=== PATIENT | female | born 1945 | race Caucasian/White ===

== ENCOUNTER 2019-01-19 04:14 | Inpatient (IN) | payer MEDICARE ==
[2019-01-18 12:43] LABS: BASOPHILS # (AUTO) 0.06 x10^3/uL (0-0.1); BASOPHILS % (AUTO) 1 % (0-1); EOSINOPHILS # (AUTO) 0.12 x10^3/uL (0-0.4); EOSINOPHILS % (AUTO) 2 % (1-7); LYMPHOCYTES # (AUTO) 1.88 x10^3/uL (1-3.4); LYMPHOCYTES % (AUTO) 23 % (22-44); MD NO; MEAN CORPUSCULAR HEMOGLOBIN 29.7 pg (27.0-34.8); MEAN CORPUSCULAR HGB CONC 32.4 g/dL (32.4-35.8); MEAN CORPUSCULAR VOLUME 91.9 fL (80-100); MEAN PLATELET VOLUME 7.6 fL (7.4-10.4); MONOCYTES # (AUTO) 0.63 x10^3/uL (0.2-0.8); MONOCYTES % (AUTO) 8 % (2-9); NEUTROPHILS # (AUTO) 5.64 x10^3/uL (1.8-6.8); NEUTROPHILS % (AUTO) 68 % (42-75); PLATELET COUNT 354 x10^3/uL (130-400); RED BLOOD COUNT 4.89 x10^6/uL (3.82-5.3); RED CELL DISTRIBUTION WIDTH 15.3 % (9.6-15.2)
[2019-01-18 12:45] LABS: MICROSCOPIC NOT IND
[2019-01-18 12:53] LABS: INTERNATIONAL NORMALIZED RATIO 0.96 (0.93-1.1); PROTHROMBIN TIME 10.1 Seconds (9.6-11.5)
[2019-01-18 12:54] LABS: ALANINE AMINOTRANSFERASE 17 U/L (12-78); ALBUMIN 3.8 g/dL (3.4-5.0); ANION GAP 5 mmol/L (5-15); CALCIUM 8.4 mg/dL (8.5-10.1); CHLORIDE 103 mmol/L (98-107); CREATININE 0.77 mg/dL (0.55-1.02)
[2019-01-18 12:56] LABS: ALKALINE PHOSPHATASE 56 U/L (45-117); BILIRUBIN,TOTAL 0.3 mg/dL (0.2-1.0); TOTAL PROTEIN 8.4 g/dL (6.4-8.2)
[2019-01-18 13:06] LABS: HEMOGLOBIN A1C 5.8 % (4.2-6.3)
[~2019-01-19] VITALS: Ht 170.2 cm; Wt 63.5 kg
[2019-01-19] VITALS (11 sets, daily range): BP systolic 79–150; BP diastolic 34–82
[~2019-01-19 04:14] MED LIST: ADDERALL PO; AMLO-150 PO; AMPH30TA2 PO; DEXT25CP PO; ESTR0.3T PO; ESTR1TAB15 PO; FISH1CAP PO; HYDR-3245 PO; LEVO175T2 PO; MULT1TAB60 PO
[2019-01-19] MEDS ORDERED: INSULIN LISPRO 100 UNITS/ML, PEN SQ-INSULIN SCH (05:00)
[2019-01-19] MEDS ORDERED: ACETAMINOPHEN 325 MG TABLET PO PRN ×2 (05:00→08:00)
[2019-01-19] MEDS ORDERED: DO NOT GIVE MC SCH (05:00)
[2019-01-19] MEDS ORDERED: CHLORHEXIDINE 15 ML UDC MM SCH (05:00)
[2019-01-19] MEDS: MUPIROCIN OINT 2%, 22GM TP SCH ×2 (05:23→05:24)
[2019-01-19] MEDS ORDERED: MIDAZOLAM 10MG/2 ML ONE ×2 (06:58→19:54)
[2019-01-19] MEDS ORDERED: FENTANYL PF 250 MCG/5ML ONE ×7 (06:58→22:24)
[2019-01-19] MEDS ORDERED: PHENYLEPHRINE 10 MG in SODIUM CHLORIDE 0.9% 249 ML IV PRN ×2 (07:30→07:45)
[2019-01-19] MEDS ORDERED: MANNITOL PMX 20% 500 ML IVPB PRN (07:30)
[2019-01-19] MEDS ORDERED: EPINEPHRINE 2 MG in SODIUM CHLORIDE 0.9% 248 ML IV SCH (07:30)
[2019-01-19] MEDS ORDERED: POTASSIUM CHLORIDE 80 MEQ, SODIUM BICARBONATE 8.4% 10 MEQ, MAGNESIUM SULFATE 0.5 GM, LI... IV PRN (07:30)
[2019-01-19] MEDS ORDERED: ALBUMIN HUMAN 5% 500 ML IV PRN (07:30)
[2019-01-19] MEDS ORDERED: REGULAR INSULIN 62.5 UNITS in SODIUM CHLORIDE 0.9% 249.375 ML IV PRN ×2 (07:30→07:45)
[2019-01-19] MEDS ORDERED: DEXMEDETOMIDINE 200 MCG in SODIUM CHLORIDE 0.9% 48 ML IV SCH (07:30)
[2019-01-19] MEDS ORDERED: VASOPRESSIN 50 UNIT in SODIUM CHLORIDE 0.9% 247.5 ML IV PRN (07:45)
[2019-01-19] MEDS ORDERED: SODIUM CHLORIDE 0.9% 1,000 ML IV PRN (07:45)
[2019-01-19] MEDS ORDERED: DOBUTAMINE 250 MG in SODIUM CHLORIDE 0.9% 230 ML IV PRN (07:45)
[2019-01-19] MEDS ORDERED: NITROGLYCERIN/D5W PMX 250 ML IV PRN (07:45)
[2019-01-19] MEDS ORDERED: GLUCAGON 1 MG IM PRN (08:00)
[2019-01-19] MEDS ORDERED: BISACODYL 5 MG EC TABLET PO PRN (08:00)
[2019-01-19] MEDS ORDERED: INSULIN REGULAR 100 UNITS/ML, 3ML VIAL IVPush PRN (08:00)
[2019-01-19] MEDS ORDERED: SODIUM BICARB 8.4%, 50ML SYRINGE IV PRN (08:00)
[2019-01-19] MEDS ORDERED: ACETAMINOPHEN 650 MG SUPP PR PRN (08:00)
[2019-01-19] MEDS ORDERED: DEXTROSE 50%, 50ML SYRINGE IVPush PRN (08:00)
[2019-01-19] MEDS ORDERED: HYDROmorphone 1 MG/ML, 1ML INJ IVPush PRN (08:00)
[2019-01-19] MEDS ORDERED: EPINEPHRINE 2 MG in SODIUM CHLORIDE 0.9% 248 ML IV PRN (08:00)
[2019-01-19] MEDS ORDERED: BISACODYL 10 MG SUPP PR PRN (08:00)
[2019-01-19] MEDS ORDERED: DEXTROSE 4 GM TAB.CHEW PO PRN (08:00)
[2019-01-19] MEDS ORDERED: ONDANSETRON 2MG/ML, 2ML IVPush PRN (08:00)
[2019-01-19] MEDS ORDERED: PROCHLORPERAZINE 5 MG/ML, 2ML IVPush PRN (08:00)
[2019-01-19] MEDS ORDERED: AMINOCAPROIC ACID 250 MG/ML, 20ML ONE ×2 (08:16)
[2019-01-19] MEDS ORDERED: PROTAMINE SULFATE 10 MG/ML, 25ML ONE (08:16)
[2019-01-19] MEDS ORDERED: PROPOFOL 10 MG/ML, 20ML ONE (08:16)
[2019-01-19] MEDS ORDERED: ROCURONIUM 10MG/ML,5ML ONE ×2 (08:16)
[2019-01-19] MEDS: MUPIROCIN OINT 2%, 22GM NAS SCH ×2 (09:00→21:00)
[2019-01-19] MEDS: DOCUSATE 100 MG CAPSULE PO SCH ×2 (09:00→23:55)
[2019-01-19] MEDS: SODIUM CHLORIDE FLUSH 10ML SYR IVF SCH ×4 (09:00→23:50)
[2019-01-19] MEDS ORDERED: AMIODARONE 50 MG/ML, 3ML ONE ×2 (09:57→10:04)
[2019-01-19] MEDS: INSULIN LISPRO 100 UNITS/ML, PEN SQ-INSULIN SCH ×3 (10:50→21:00)
[2019-01-19] MEDS ORDERED: SODIUM BICARBONATE 1 MEQ/ML, 50ML VIAL ONE (11:16)
[2019-01-19] MEDS ORDERED: methylPREDNISolone SOD SUCC 125 MG/2 ML ONE (11:16)
[2019-01-19] MEDS ORDERED: HEPARIN 1,000 UNITS/ML, 30ML ONE (11:16)
[2019-01-19] MEDS ORDERED: ALBUMIN HUMAN 25% 50 ML ONE (11:16)
[2019-01-19] MEDS ORDERED: LIDOCAINE-MPF 2% ,5ML ONE (11:16)
[2019-01-19 11:27] LABS: GLUCOSE BY BLOOD GAS ANALYZER 125 mg/dL (70-110); HEMOGLOBIN BY BLOOD GAS ANALYZ 9.8 g/dL (14.0-18.0); POTASSIUM BY BLOOD GAS ANALYZR 3.4 mmol/L (3.6-5.5)
[2019-01-19] MEDS: KSCALE TO 4.5 IV SCH ×2 (11:30→17:30)
[2019-01-19 11:40] LABS: INTERNATIONAL NORMALIZED RATIO 1.2 (0.93-1.1); PROTHROMBIN TIME 12.5 Seconds (9.6-11.5)
[2019-01-19] MEDS: MAGNESIUM SULFATE 1 GM in SODIUM CHLORIDE 0.9% 50 ML IVPB SCH (11:41)
[2019-01-19] MEDS: LACTATED RINGERS 1,000 ML IV PRN ×2 (11:44→12:51)
[2019-01-19] MEDS ORDERED: POTASSIUM CHLORIDE 30 MEQ in SODIUM CHLORIDE 0.9% 100 ML IV ONE (12:30)
[2019-01-19] MEDS ORDERED: SODIUM CHLORIDE 0.9%, 500ML IVBOLUS ONE (14:00)
[2019-01-19] MEDS ORDERED: ALBUMIN HUMAN 5% 500 ML IV ONE (14:00)
[2019-01-19] MEDS: HYDROcodone/APAP 5/325 TABLET PO PRN ×2 (17:03→18:18)
[2019-01-19] MEDS ORDERED: CALCIUM CHLORIDE 13.6 MEQ in SODIUM CHLORIDE 0.9% 100 ML IV ONE (18:30)
[2019-01-19] MEDS: morphine SULFATE 10 MG/ML, 1ML IVPush PRN ×2 (19:22→23:22)
[2019-01-19] MEDS ORDERED: PROPOFOL 100 ML IV ONE (21:17)
[2019-01-19] MEDS ORDERED: MORPHINE SULFATE 4 MG/ML, 1ML ONE ×2 (21:27→21:29)
[2019-01-19 22:16] LABS: INTERNATIONAL NORMALIZED RATIO 1.32 (0.93-1.1); PROTHROMBIN TIME 13.7 Seconds (9.6-11.5)
[2019-01-19] MEDS ORDERED: HYDROmorphone 2 MG/ML, 1ML ONE (22:30)
[2019-01-19] MEDS: DEXMEDETOMIDINE 200 MCG in SODIUM CHLORIDE 0.9% 48 ML IV PRN (23:54)
[2019-01-20] VITALS (13 sets, daily range): BP systolic 82–151; BP diastolic 43–80
[2019-01-20] MEDS: CEFUROXIME 1.5 GM in SODIUM CHLORIDE 0.9% 50 ML IVPB SCH ×2 (00:50→12:56)
[2019-01-20] MEDS: KSCALE TO 4.5 IV SCH ×2 (01:15→06:18)
[2019-01-20] MEDS ORDERED: POTASSIUM CHLORIDE PMX 100 ML IV ONE (01:30)
[2019-01-20] MEDS: VANCOMYCIN 800 MG in SODIUM CHLORIDE 0.9% 250 ML IVPB SCH ×2 (01:35→09:28)
[2019-01-20 05:14] LABS: MEAN CORPUSCULAR HEMOGLOBIN 29.7 pg (27.0-34.8); MEAN CORPUSCULAR HGB CONC 33.5 g/dL (32.4-35.8); MEAN CORPUSCULAR VOLUME 88.6 fL (80-100); MEAN PLATELET VOLUME 8.3 fL (7.4-10.4); PLATELET COUNT 218 x10^3/uL (130-400); RED BLOOD COUNT 2.27 x10^6/uL (3.82-5.3); RED CELL DISTRIBUTION WIDTH 15.4 % (9.6-15.2)
[2019-01-20 05:25] LABS: INTERNATIONAL NORMALIZED RATIO 1.08 (0.93-1.1); PROTHROMBIN TIME 11.3 Seconds (9.6-11.5)
[2019-01-20 05:26] LABS: ALBUMIN 2.3 g/dL (3.4-5.0); ANION GAP 5 mmol/L (5-15); CHLORIDE 121 mmol/L (98-107)
[2019-01-20 05:28] LABS: CALCIUM 6.6 mg/dL (8.5-10.1); CREATININE 0.71 mg/dL (0.55-1.02)
[2019-01-20] MEDS ORDERED: CALCIUM CHLORIDE 13.6 MEQ in SODIUM CHLORIDE 0.9% 100 ML IV ONE (05:30)
[2019-01-20] MEDS: DEXMEDETOMIDINE 200 MCG in SODIUM CHLORIDE 0.9% 48 ML IV PRN (05:33)
[2019-01-20 05:44] LABS: BASOPHILS # (AUTO) 0.02 x10^3/uL (0-0.1); BASOPHILS % (AUTO) 0 % (0-1); EOSINOPHILS % (AUTO) 0 % (1-7); LYMPHOCYTES # (AUTO) 1.49 x10^3/uL (1-3.4); LYMPHOCYTES % (AUTO) 16 % (22-44); MD SCAN; MONOCYTES # (AUTO) 0.92 x10^3/uL (0.2-0.8); MONOCYTES % (AUTO) 10 % (2-9); NEUTROPHILS % (AUTO) 74 % (42-75)
[2019-01-20] MEDS ORDERED: MORPHINE SULFATE 4 MG/ML, 1ML ONE (06:16)
[2019-01-20] MEDS: morphine SULFATE 10 MG/ML, 1ML IVPush PRN ×3 (06:17→21:50)
[2019-01-20] MEDS: INSULIN LISPRO 100 UNITS/ML, PEN SQ-INSULIN SCH ×4 (07:00→20:45)
[2019-01-20] MEDS: SODIUM CHLORIDE FLUSH 10ML SYR IVF SCH ×4 (07:08→20:46)
[2019-01-20] MEDS ORDERED: VANCOMYCIN PMX 1GM/200ML 200 ML IV PRN (07:30)
[2019-01-20] MEDS: CHLORHEXIDINE 15 ML UDC MM SCH ×2 (07:41→20:47)
[2019-01-20] MEDS: DOCUSATE 100 MG CAPSULE PO SCH ×2 (07:43→20:47)
[2019-01-20] MEDS: MUPIROCIN OINT 2%, 22GM TP SCH (09:00)
[2019-01-20] MEDS: MUPIROCIN OINT 2%, 22GM NAS SCH ×2 (09:28→20:48)
[2019-01-20] MEDS: HYDROcodone/APAP 10/325 MG TABLET PO PRN ×3 (11:39→20:47)
[2019-01-20] MEDS: ASPIRIN 81 MG TABLET EC PO SCH (11:50)
[2019-01-20] MEDS: MAGNESIUM SULFATE 1 GM in SODIUM CHLORIDE 0.9% 50 ML IVPB SCH (11:50)
[2019-01-20] MEDS: OXYcodone IR 5MG TABLET PO PRN ×2 (13:00→16:41)
[2019-01-20] MEDS ORDERED: FUROSEMIDE 20 MG/2 ML ONE (13:35)
[2019-01-20] MEDS ORDERED: FUROSEMIDE 20 MG/2 ML IV ONE (14:00)
[2019-01-21] MEDS: INSULIN LISPRO 100 UNITS/ML, PEN SQ-INSULIN SCH ×6 (00:31→20:04)
[2019-01-21] MEDS: HYDROcodone/APAP 10/325 MG TABLET PO PRN ×4 (00:35→21:08)
[2019-01-21] MEDS: OXYcodone IR 5MG TABLET PO PRN ×3 (02:35→14:55)
[2019-01-21 05:23] VITALS: BP 108/49
[2019-01-21 05:42] LABS: INTERNATIONAL NORMALIZED RATIO 0.95 (0.93-1.1)
[2019-01-21 05:44] LABS: BASOPHILS # (AUTO) 0.01 x10^3/uL (0-0.1); BASOPHILS % (AUTO) 0 % (0-1); EOSINOPHILS # (AUTO) 0.14 x10^3/uL (0-0.4); EOSINOPHILS % (AUTO) 1 % (1-7); LYMPHOCYTES # (AUTO) 1.58 x10^3/uL (1-3.4); LYMPHOCYTES % (AUTO) 11 % (22-44); MD NO; MEAN CORPUSCULAR HEMOGLOBIN 29.8 pg (27.0-34.8); MEAN CORPUSCULAR HGB CONC 33.1 g/dL (32.4-35.8); MEAN CORPUSCULAR VOLUME 89.8 fL (80-100); MEAN PLATELET VOLUME 9.1 fL (7.4-10.4); MONOCYTES # (AUTO) 1.33 x10^3/uL (0.2-0.8); MONOCYTES % (AUTO) 9 % (2-9); NEUTROPHILS # (AUTO) 11.61 x10^3/uL (1.8-6.8); NEUTROPHILS % (AUTO) 79 % (42-75); PLATELET COUNT 181 x10^3/uL (130-400); RED BLOOD COUNT 3.03 x10^6/uL (3.82-5.3); RED CELL DISTRIBUTION WIDTH 16.3 % (9.6-15.2)
[2019-01-21 05:48] LABS: ANION GAP 5 mmol/L (5-15); CALCIUM 6.7 mg/dL (8.5-10.1); CHLORIDE 115 mmol/L (98-107); CREATININE 0.57 mg/dL (0.55-1.02)
[2019-01-21] MEDS: SODIUM CHLORIDE FLUSH 10ML SYR IVF SCH ×2 (08:13→19:58)
[2019-01-21] MEDS: DOCUSATE 100 MG CAPSULE PO SCH ×2 (08:13→19:58)
[2019-01-21] MEDS: ASPIRIN 81 MG TABLET EC PO SCH (08:13)
[2019-01-21] MEDS: MUPIROCIN OINT 2%, 22GM NAS SCH ×2 (08:13→19:58)
[2019-01-21] MEDS: CHLORHEXIDINE 15 ML UDC MM SCH ×2 (08:13→19:57)
[2019-01-21] MEDS ORDERED: ELECTROLYTE REPLACEMENT PROTOCOL CRITICAL CARE ONLY MC PRN (08:30)
[2019-01-21] MEDS ORDERED: POTASSIUM CHLORIDE 20 MEQ TAB.ER.PRT PO ONE (09:00)
[2019-01-21] MEDS: MAGNESIUM SULFATE 1 GM in SODIUM CHLORIDE 0.9% 50 ML IVPB SCH (11:40)
[2019-01-21] MEDS ORDERED: AMLODIPINE 5 MG TABLET PO ONE (12:30)
[2019-01-21] MEDS: KETOROLAC 30 MG/1 ML IVPush PRN ×2 (12:40→19:56)
[2019-01-21 18:20] VITALS: BP 152/74
[2019-01-21 19:53] VITALS: BP 161/77
[2019-01-21 20:07] VITALS: BP 147/75
[2019-01-21] MEDS: AMLODIPINE 5 MG TABLET PO SCH (21:07)
[2019-01-22 01:24] VITALS: BP 168/78
[2019-01-22] MEDS: HYDROcodone/APAP 10/325 MG TABLET PO PRN ×5 (01:27→20:07)
[2019-01-22 02:35] VITALS: BP 147/77
[2019-01-22] MEDS ORDERED: AMIODARONE 150 MG in DEXTROSE 5% 100 ML IV ONE (03:30)
[2019-01-22] MEDS: AMIODARONE 900 MG in DEXTROSE 5% 482 ML IV PRN (03:36)
[2019-01-22] MEDS: FILTER 0.22 MICRON IV PRN (03:36)
[2019-01-22] MEDS: KETOROLAC 30 MG/1 ML IVPush PRN (03:44)
[2019-01-22 03:59] VITALS: BP 118/65
[2019-01-22 06:00] LABS: BASOPHILS # (AUTO) 0.02 x10^3/uL (0-0.1); BASOPHILS % (AUTO) 0 % (0-1); EOSINOPHILS # (AUTO) 0.16 x10^3/uL (0-0.4); EOSINOPHILS % (AUTO) 1 % (1-7); LYMPHOCYTES # (AUTO) 1.77 x10^3/uL (1-3.4); LYMPHOCYTES % (AUTO) 12 % (22-44); MD NO; MEAN CORPUSCULAR HEMOGLOBIN 30.2 pg (27.0-34.8); MEAN CORPUSCULAR HGB CONC 33.9 g/dL (32.4-35.8); MEAN CORPUSCULAR VOLUME 89.1 fL (80-100); MEAN PLATELET VOLUME 8.9 fL (7.4-10.4); MONOCYTES # (AUTO) 1.23 x10^3/uL (0.2-0.8); MONOCYTES % (AUTO) 8 % (2-9); NEUTROPHILS # (AUTO) 11.82 x10^3/uL (1.8-6.8); NEUTROPHILS % (AUTO) 79 % (42-75); PLATELET COUNT 193 x10^3/uL (130-400); RED BLOOD COUNT 3.22 x10^6/uL (3.82-5.3); RED CELL DISTRIBUTION WIDTH 16.3 % (9.6-15.2)
[2019-01-22 06:10] LABS: ANION GAP 4 mmol/L (5-15); CHLORIDE 107 mmol/L (98-107); CREATININE 0.51 mg/dL (0.55-1.02)
[2019-01-22 07:21] VITALS: BP 111/84
[2019-01-22] MEDS: INSULIN LISPRO 100 UNITS/ML, PEN SQ-INSULIN SCH ×2 (07:24→11:29)
[2019-01-22] MEDS: SODIUM CHLORIDE FLUSH 10ML SYR IVF SCH ×2 (08:31→20:06)
[2019-01-22] MEDS: ASPIRIN 81 MG TABLET EC PO SCH (08:39)
[2019-01-22] MEDS: OXYcodone IR 5MG TABLET PO PRN ×5 (08:40→23:38)
[2019-01-22] MEDS: AMLODIPINE 5 MG TABLET PO SCH ×2 (08:41→20:07)
[2019-01-22] MEDS: DOCUSATE 100 MG CAPSULE PO SCH ×2 (08:42→20:07)
[2019-01-22] MEDS: MUPIROCIN OINT 2%, 22GM NAS SCH ×2 (08:43→20:06)
[2019-01-22] MEDS ORDERED: AMLODIPINE 5 MG TABLET PO SCH (09:00)
[2019-01-22 13:36] VITALS: BP_SYST 105; BP_SYST 128; BP_DIAS 58; BP_DIAS 68
[2019-01-22 20:02] VITALS: BP 136/76
[2019-01-22] MEDS ORDERED: LISINOPRIL 5 MG TABLET PO SCH (21:00)
[2019-01-23 01:50] VITALS: BP 126/70
[2019-01-23] MEDS: FILTER 0.22 MICRON IV PRN (02:02)
[2019-01-23] MEDS: AMIODARONE 900 MG in DEXTROSE 5% 482 ML IV PRN (02:03)
[2019-01-23] MEDS: HYDROcodone/APAP 10/325 MG TABLET PO PRN ×2 (03:46→16:01)
[2019-01-23 05:54] LABS: BASOPHILS # (AUTO) 0.01 x10^3/uL (0-0.1); BASOPHILS % (AUTO) 0 % (0-1); EOSINOPHILS # (AUTO) 0.26 x10^3/uL (0-0.4); EOSINOPHILS % (AUTO) 2 % (1-7); LYMPHOCYTES # (AUTO) 1.55 x10^3/uL (1-3.4); LYMPHOCYTES % (AUTO) 10 % (22-44); MD NO; MEAN CORPUSCULAR HEMOGLOBIN 30.2 pg (27.0-34.8); MEAN CORPUSCULAR HGB CONC 33.1 g/dL (32.4-35.8); MEAN CORPUSCULAR VOLUME 91.3 fL (80-100); MEAN PLATELET VOLUME 8.5 fL (7.4-10.4); MONOCYTES # (AUTO) 1.05 x10^3/uL (0.2-0.8); MONOCYTES % (AUTO) 7 % (2-9); NEUTROPHILS # (AUTO) 12.08 x10^3/uL (1.8-6.8); NEUTROPHILS % (AUTO) 81 % (42-75); PLATELET COUNT 226 x10^3/uL (130-400); RED BLOOD COUNT 3.12 x10^6/uL (3.82-5.3); RED CELL DISTRIBUTION WIDTH 15.6 % (9.6-15.2)
[2019-01-23 06:02] LABS: ANION GAP 3 mmol/L (5-15); CALCIUM 6.8 mg/dL (8.5-10.1); CHLORIDE 104 mmol/L (98-107); CREATININE 0.45 mg/dL (0.55-1.02)
[2019-01-23 06:42] VITALS: BP 147/78
[2019-01-23] MEDS: OXYcodone IR 5MG TABLET PO PRN ×2 (06:47→11:35)
[2019-01-23] MEDS ORDERED: AMIODARONE 200 MG TABLET PO ONE (08:00)
[2019-01-23] MEDS ORDERED: POTASSIUM CHLORIDE 20 MEQ TAB.ER.PRT PO ONE ×2 (08:00→10:00)
[2019-01-23] MEDS: AMIODARONE 200 MG TABLET PO SCH ×2 (08:33→21:26)
[2019-01-23] MEDS: ASPIRIN 81 MG TABLET EC PO SCH (08:33)
[2019-01-23] MEDS: AMLODIPINE 5 MG TABLET PO SCH ×2 (08:33→21:26)
[2019-01-23] MEDS: DOCUSATE 100 MG CAPSULE PO SCH ×2 (08:33→21:26)
[2019-01-23] MEDS: SODIUM CHLORIDE FLUSH 10ML SYR IVF SCH ×2 (08:35→21:25)
[2019-01-23] MEDS: MUPIROCIN OINT 2%, 22GM NAS SCH ×2 (08:41→21:26)
[2019-01-23] MEDS ORDERED: LISINOPRIL 5 MG TABLET ONE (08:44)
[2019-01-23] MEDS: LISINOPRIL 10 MG TABLET PO SCH ×2 (08:48→21:26)
[2019-01-23] MEDS: FUROSEMIDE 40 MG TABLET PO SCH (10:12)
[2019-01-23] MEDS: LEVOTHYROXINE 175 MCG TABLET PO SCH (10:12)
[2019-01-23] MEDS: ESTROGEN CONJUGATED 0.3 MG TABLET PO SCH (11:36)
[2019-01-23 12:01] VITALS: BP 128/79
[2019-01-23] MEDS: KETOROLAC 30 MG/1 ML IVPush PRN ×2 (12:53→18:40)
[2019-01-23 19:34] VITALS: BP 139/74
[2019-01-23 21:21] VITALS: BP 160/77
[2019-01-23] MEDS: HYDROcodone/APAP 5/325 TABLET PO PRN (22:16)
[2019-01-23 23:14] VITALS: BP 148/75
[2019-01-24 00:33] VITALS: BP 139/77
[2019-01-24] MEDS: KETOROLAC 30 MG/1 ML IVPush PRN ×2 (00:47→08:45)
[2019-01-24 04:21] LABS: BASOPHILS # (AUTO) 0.05 x10^3/uL (0-0.1); BASOPHILS % (AUTO) 0 % (0-1); EOSINOPHILS % (AUTO) 2 % (1-7); LYMPHOCYTES # (AUTO) 1.72 x10^3/uL (1-3.4); LYMPHOCYTES % (AUTO) 12 % (22-44); MD NO; MEAN CORPUSCULAR VOLUME 91.1 fL (80-100); MONOCYTES # (AUTO) 1.03 x10^3/uL (0.2-0.8); MONOCYTES % (AUTO) 7 % (2-9); NEUTROPHILS # (AUTO) 11.03 x10^3/uL (1.8-6.8); NEUTROPHILS % (AUTO) 78 % (42-75); PLATELET COUNT 299 x10^3/uL (130-400); RED BLOOD COUNT 3.52 x10^6/uL (3.82-5.3); RED CELL DISTRIBUTION WIDTH 15.9 % (9.6-15.2)
[2019-01-24] MEDS: HYDROcodone/APAP 10/325 MG TABLET PO PRN (04:34)
[2019-01-24 04:43] LABS: ANION GAP 5 mmol/L (5-15); CALCIUM 7.4 mg/dL (8.5-10.1); CHLORIDE 104 mmol/L (98-107)
[2019-01-24 04:45] LABS: CREATININE 0.51 mg/dL (0.55-1.02)
[2019-01-24] MEDS: LEVOTHYROXINE 175 MCG TABLET PO SCH (06:05)
[2019-01-24 07:25] VITALS: BP 130/68
[2019-01-24] MEDS: AMLODIPINE 5 MG TABLET PO SCH (08:44)
[2019-01-24] MEDS: SODIUM CHLORIDE FLUSH 10ML SYR IVF SCH (08:44)
[2019-01-24] MEDS: ASPIRIN 81 MG TABLET EC PO SCH (08:44)
[2019-01-24] MEDS: AMIODARONE 200 MG TABLET PO SCH (08:45)
[2019-01-24] MEDS: FUROSEMIDE 40 MG TABLET PO SCH (08:45)
[2019-01-24] MEDS: LISINOPRIL 10 MG TABLET PO SCH (08:45)
[2019-01-24] MEDS: ESTROGEN CONJUGATED 0.3 MG TABLET PO SCH (08:45)
[2019-01-24] MEDS: DOCUSATE 100 MG CAPSULE PO SCH (09:00)
[2019-01-24] MEDS ORDERED: LISI-167 PO (09:43)
[2019-01-24] MEDS ORDERED: AMLO-150 PO (09:43)
[2019-01-24] MEDS ORDERED: FURO-93 PO (09:43)
[2019-01-24] MEDS ORDERED: CIPR-184 PO (09:43)
[2019-01-24] MEDS ORDERED: ASPI81TA45 PO (09:43)
[2019-01-24] MEDS ORDERED: POTA20TA14 PO (09:43)
[2019-01-24] MEDS ORDERED: OXYC10TA6 PO (09:43)
[2019-01-24] MEDS ORDERED: AMIO200T42 PO (09:48)
[2019-01-24] MEDS ORDERED: POTASSIUM CHLORIDE 20 MEQ TAB.ER.PRT PO ONE (10:00)
[2019-01-24] MEDS: OXYcodone IR 5MG TABLET PO PRN (11:10)
== END 2019-01-24 15:10 | disposition home or self-care (01) | DRG 219 ==
LOC: 5SO 04:14 → CSU 07:38 → 5SO 01-21 18:12 → DCLOUNGE 01-24 14:56
PROVIDERS: ADMIT Thoracic Surgery (Cardiothoracic Vascular Surgery); ATTEND Thoracic Surgery (Cardiothoracic Vascular Surgery)
PROC: 02RX0JZ Replacement of Thoracic Aorta, Ascending/Arch with Synthetic Substitute, Open Approach (ICD-10-PCS; 2019-01-19)
PROC: 0WCC0ZZ Extirpation of Matter from Mediastinum, Open Approach (ICD-10-PCS; 2019-01-19)
PROC: 30233K1 Transfusion of Nonautologous Frozen Plasma into Peripheral Vein, Percutaneous Approach (ICD-10-PCS; 2019-01-19)
PROC: 30233N1 Transfusion of Nonautologous Red Blood Cells into Peripheral Vein, Percutaneous Approach (ICD-10-PCS; 2019-01-19)
PROC: 30233R1 Transfusion of Nonautologous Platelets into Peripheral Vein, Percutaneous Approach (ICD-10-PCS; 2019-01-19)
PROC: 5A1935Z Respiratory Ventilation, Less than 24 Consecutive Hours (ICD-10-PCS; 2019-01-19)
PROC: 0BH17EZ Insertion of Endotracheal Airway into Trachea, Via Natural or Artificial Opening (ICD-10-PCS; 2019-01-19)
PROC: B24BZZ4 Ultrasonography of Heart with Aorta, Transesophageal (ICD-10-PCS; 2019-01-19)
PROC: 02QX0ZZ Repair Thoracic Aorta, Ascending/Arch, Open Approach (ICD-10-PCS; 2019-01-19)
PROC: 02RF08Z Replacement of Aortic Valve with Zooplastic Tissue, Open Approach (ICD-10-PCS; principal; 2019-01-19 07:30)
DX: I35.0 Nonrheumatic aortic (valve) stenosis (principal); I50.33 Acute on chronic diastolic (congestive) heart failure; F11.20 Opioid dependence, uncomplicated; I44.2 Atrioventricular block, complete; I97.620 Postprocedural hemorrhage of a circulatory system organ or structure following other procedure; B19.20 Unspecified viral hepatitis C without hepatic coma; E89.0 Postprocedural hypothyroidism; F32.9 Major depressive disorder, single episode, unspecified; F90.9 Attention-deficit hyperactivity disorder, unspecified type; G89.29 Other chronic pain; I11.0 Hypertensive heart disease with heart failure; I25.10 Atherosclerotic heart disease of native coronary artery without angina pectoris; I48.91 Unspecified atrial fibrillation; I71.2 Thoracic aortic aneurysm, without rupture; M79.7 Fibromyalgia; Z86.73 Personal history of transient ischemic attack (TIA), and cerebral infarction without residual deficits; Z86.79 Personal history of other diseases of the circulatory system; Z87.891 Personal history of nicotine dependence; Z90.710 Acquired absence of both cervix and uterus; Z95.2 Presence of prosthetic heart valve
CPT/HCPCS: 36415; 36600; 71045; 71046; 80048; 80053; 81003; 82040; 82330; 82800; 82803; 82810; 82947; 82962; 83036; 83735; 84132; 84295; 85014; 85018; 85025; 85049; 85347; 85610; 85730; 86850; 86900; 86923; 87070; 87081; 87205; 88304; 88305; 93005; 93312; 93321; 93325; 94002; 94003; 94150; C1768; G0378; J0697; J1170; J1644; J1815; J1885; J2250; J2704; J2720; J3010; J3370; J3475; J3480; P9045; P9047; C1751; C1760; J0171; J0282; J1940; J2270; J2370; J2930; J7030; J7040; J7050; J7060; J7120; P9016; P9017; P9035

== ENCOUNTER 2019-02-05 13:12 | Inpatient (IN) | payer MEDICARE ==
[~2019-02-05] VITALS: Ht 170.2 cm; Wt 53.7 kg
[~2019-02-05 13:12] MED LIST changes: +AMIO200T42 PO; +ASPI81TA45 PO; +CIPR-184 PO; +FURO-93 PO; +LISI-167 PO; +OXYC10TA6 PO; +POTA20TA14 PO
[2019-02-05 14:22] LABS: MICROSCOPIC NOT IND
[2019-02-05 14:24] LABS: CULTURE INDICATED? NO
[2019-02-05 14:24] LABS: INTERNATIONAL NORMALIZED RATIO 0.97 (0.93-1.1); PROTHROMBIN TIME 10.2 Seconds (9.6-11.5)
[2019-02-05 14:25] LABS: ALBUMIN 3.2 g/dL (3.4-5.0); ANION GAP 5 mmol/L (5-15); CALCIUM 7.5 mg/dL (8.5-10.1); CHLORIDE 93 mmol/L (98-107)
[2019-02-05 14:30] LABS: ALANINE AMINOTRANSFERASE 14 U/L (12-78); ALKALINE PHOSPHATASE 80 U/L (45-117); BILIRUBIN,TOTAL 0.2 mg/dL (0.2-1.0); CREATININE 0.81 mg/dL (0.55-1.02); TOTAL PROTEIN 7.5 g/dL (6.4-8.2); TROPONIN I < 0.015 ng/mL (0.000-0.045)
--- NOTE | 2019-02-05 14:33 | NUR ---
TASK RN: PT RESTING ON GURNEY. AUDIBLE INSPIRATORY AND EXPIRATORY WHEEZES NOTED. VSS. RESTING ON GURNEY. SO AT BEDSIDE.
[2019-02-05 14:53] LABS: MEAN CORPUSCULAR HEMOGLOBIN 30.1 pg (27.0-34.8); MEAN CORPUSCULAR VOLUME 94.2 fL (80-100); MEAN PLATELET VOLUME 6.6 fL (7.4-10.4); PLATELET COUNT 803 x10^3/uL (130-400); RED BLOOD COUNT 3.81 x10^6/uL (3.82-5.3); RED CELL DISTRIBUTION WIDTH 17.7 % (9.6-15.2)
--- NOTE | 2019-02-05 16:07 | NUR ---
REPORT TO JAZMYN HARMAN. PT TO BE TRANSPORTED TO FLOOR AFTER CTA
[2019-02-05 16:10] LABS: MD YES
[2019-02-05 16:14] LABS: BANDS%(MANUAL) 1 % (0-7); BASOS% (MANUAL) 1 % (0-1); LYMPH#(MANUAL) 0.73 x10^3/uL (1-3.4); LYMPHS% (MANUAL) 7 % (22-44); MONOS#(MANUAL) 0.42 x10^3/uL (0.3-2.7); MONOS% (MANUAL) 4 % (2-9); SEG#(MANUAL) 9.05 x10^3/uL (1.8-6.8); SEGS% (MANUAL) 87 % (42-75)
[2019-02-05 16:16] LABS: ANISOCYTOSIS 1+; POLYCHROMASIA 1+
[2019-02-05 16:17] LABS: <PLATELET ESTIMATE> INCREASED; <PLT MORPHOLOGY> NORMAL PLT MORPH
[2019-02-05] MEDS ORDERED: ACETAMINOPHEN 325 MG TABLET PO PRN (16:30)
[2019-02-05] MEDS ORDERED: OXYcodone/APAP 5/325MG TABLET PO PRN (16:30)
[2019-02-05] MEDS ORDERED: FUROSEMIDE 40 MG/4 ML IV ONE (16:30)
--- NOTE | 2019-02-05 16:30 | NUR ---
TO CT VIA [facility]
--- NOTE | 2019-02-05 16:45 | NUR ---
PER MEDICAL ASSISTANT SECRETARY, CONTRAST DRIPPED IN PT'S LEFT EYE. UPON RETURN TO ER, EYE FLUSHED WITH NORMAL SALINE.
[2019-02-05] MEDS ORDERED: OMNIPAQUE 350 MG/ML, 100ML BOTTLE ONE (16:56)
[2019-02-05] MEDS: ENOXAPARIN 40 MG/0.4 ML SQ SCH (17:17)
[2019-02-05] MEDS: HYDROcodone/APAP 10/325 MG TABLET PO SCH ×2 (17:18→21:47)
[2019-02-05 17:47] VITALS: BP 162/82
[2019-02-05 20:07] VITALS: BP 135/74
[2019-02-05 21:44] VITALS: BP 142/66
[2019-02-05] MEDS: AMIODARONE 200 MG TABLET PO SCH (21:46)
[2019-02-05] MEDS: LISINOPRIL 10 MG TABLET PO SCH (21:47)
[2019-02-05] MEDS: AMLODIPINE 5 MG TABLET PO SCH (21:47)
[2019-02-06 01:31] VITALS: BP 140/70
[2019-02-06] MEDS: HYDROcodone/APAP 10/325 MG TABLET PO SCH ×3 (02:11→10:00)
[2019-02-06] MEDS: LEVOTHYROXINE 175 MCG TABLET PO SCH (06:05)
[2019-02-06 06:19] LABS: BASOPHILS # (AUTO) 0.05 x10^3/uL (0-0.1); BASOPHILS % (AUTO) 1 % (0-1); EOSINOPHILS # (AUTO) 0.18 x10^3/uL (0-0.4); EOSINOPHILS % (AUTO) 2 % (1-7); LYMPHOCYTES # (AUTO) 1.18 x10^3/uL (1-3.4); LYMPHOCYTES % (AUTO) 12 % (22-44); MD NO; MEAN CORPUSCULAR HEMOGLOBIN 29.9 pg (27.0-34.8); MEAN CORPUSCULAR HGB CONC 31.8 g/dL (32.4-35.8); MEAN CORPUSCULAR VOLUME 94.2 fL (80-100); MEAN PLATELET VOLUME 6.6 fL (7.4-10.4); MONOCYTES # (AUTO) 0.84 x10^3/uL (0.2-0.8); MONOCYTES % (AUTO) 9 % (2-9); NEUTROPHILS % (AUTO) 77 % (42-75); PLATELET COUNT 770 x10^3/uL (130-400)
[2019-02-06 06:35] LABS: CALCIUM 7.3 mg/dL (8.5-10.1); CHLORIDE 92 mmol/L (98-107)
[2019-02-06 06:39] VITALS: BP 114/63
[2019-02-06 06:41] LABS: ANION GAP 7 mmol/L (5-15); CHOL/HDL RATIO 3.3; CHOLESTEROL, TOTAL 150 mg/dL (140-239); CREATININE 0.82 mg/dL (0.55-1.02); HDL CHOL % 31 % (28-40); HDL CHOLESTEROL (DIRECT) 46 mg/dL (40-60); LDL CHOLESTEROL,CALCULATED 88 mg/dL (54-169); LDL/HDL RATIO 1.9 (0.5-3.0); TRIGLYCERIDES 82 mg/dL (50-200); VLDL CHOLESTEROL 16 mg/dL (0-25)
[2019-02-06] MEDS: POTASSIUM CHLORIDE 20 MEQ TAB.ER.PRT PO SCH (08:35)
[2019-02-06] MEDS: MULTIVITAMIN 1 TABLET PO SCH (08:35)
[2019-02-06] MEDS: LISINOPRIL 10 MG TABLET PO SCH ×2 (08:35→20:28)
[2019-02-06] MEDS: ASPIRIN 81 MG TABLET EC PO SCH (08:35)
[2019-02-06] MEDS: AMLODIPINE 5 MG TABLET PO SCH ×2 (08:35→20:28)
[2019-02-06] MEDS: AMIODARONE 200 MG TABLET PO SCH ×2 (08:36→20:27)
[2019-02-06] MEDS: FUROSEMIDE 40 MG/4 ML IV SCH (08:36)
[2019-02-06] MEDS ORDERED: LIDOCAINE 1%, 10ML ONE (12:58)
[2019-02-06 13:07] VITALS: BP 109/66
[2019-02-06] MEDS: HYDROcodone/APAP 10/325 MG TABLET PO PRN (16:44)
[2019-02-06] MEDS: ENOXAPARIN 40 MG/0.4 ML SQ SCH (18:06)
[2019-02-06 18:50] VITALS: BP 116/71
[2019-02-07] VITALS (7 sets, daily range): BP systolic 81–121; BP diastolic 47–73
[2019-02-07] MEDS: HYDROcodone/APAP 10/325 MG TABLET PO PRN ×2 (00:41→14:49)
[2019-02-07 04:52] LABS: BASOPHILS # (AUTO) 0.05 x10^3/uL (0-0.1); BASOPHILS % (AUTO) 1 % (0-1); EOSINOPHILS # (AUTO) 0.06 x10^3/uL (0-0.4); EOSINOPHILS % (AUTO) 1 % (1-7); LYMPHOCYTES # (AUTO) 1.18 x10^3/uL (1-3.4); LYMPHOCYTES % (AUTO) 11 % (22-44); MD NO; MEAN CORPUSCULAR HEMOGLOBIN 29.3 pg (27.0-34.8); MEAN CORPUSCULAR HGB CONC 31.7 g/dL (32.4-35.8); MEAN CORPUSCULAR VOLUME 92.6 fL (80-100); MEAN PLATELET VOLUME 6.3 fL (7.4-10.4); MONOCYTES # (AUTO) 0.88 x10^3/uL (0.2-0.8); MONOCYTES % (AUTO) 8 % (2-9); NEUTROPHILS # (AUTO) 8.95 x10^3/uL (1.8-6.8); NEUTROPHILS % (AUTO) 81 % (42-75); PLATELET COUNT 740 x10^3/uL (130-400); RED CELL DISTRIBUTION WIDTH 17.4 % (9.6-15.2)
[2019-02-07 04:56] LABS: ANION GAP 4 mmol/L (5-15); CALCIUM 7.2 mg/dL (8.5-10.1); CHLORIDE 96 mmol/L (98-107); CREATININE 0.88 mg/dL (0.55-1.02)
[2019-02-07] MEDS: LEVOTHYROXINE 175 MCG TABLET PO SCH (05:29)
[2019-02-07] MEDS ORDERED: LIDOCAINE 1%, 10ML ONE (07:52)
[2019-02-07] MEDS: AMLODIPINE 5 MG TABLET PO SCH ×3 (09:00→21:25)
[2019-02-07] MEDS: LISINOPRIL 10 MG TABLET PO SCH ×3 (09:00→21:26)
[2019-02-07] MEDS: FUROSEMIDE 40 MG/4 ML IV SCH ×2 (09:00→10:20)
[2019-02-07] MEDS: AMIODARONE 200 MG TABLET PO SCH ×2 (10:20→21:25)
[2019-02-07] MEDS: POTASSIUM CHLORIDE 20 MEQ TAB.ER.PRT PO SCH (10:21)
[2019-02-07] MEDS: MULTIVITAMIN 1 TABLET PO SCH (10:21)
[2019-02-07] MEDS: ASPIRIN 81 MG TABLET EC PO SCH (10:21)
[2019-02-07] MEDS: ENOXAPARIN 40 MG/0.4 ML SQ SCH (10:30)
[2019-02-07] MEDS ORDERED: SODIUM CHLORIDE NASAL SPRAY 45ML BOTTLE NAS PRN (14:00)
[2019-02-07] MEDS ORDERED: SODIUM CHLORIDE 0.9%, 500ML IVBOLUS ONE (15:00)
[2019-02-07] MEDS: LIDODERM 5% PATCH TD SCH (21:30)
[2019-02-07] MEDS ORDERED: LIDODERM REMOVE PATCH NOTE XX SCH (21:30)
[2019-02-08 00:49] VITALS: BP 129/86
[2019-02-08] MEDS: HYDROcodone/APAP 10/325 MG TABLET PO PRN ×4 (02:07→20:13)
[2019-02-08 04:45] LABS: BASOPHILS # (AUTO) 0.03 x10^3/uL (0-0.1); BASOPHILS % (AUTO) 0 % (0-1); EOSINOPHILS # (AUTO) 0.14 x10^3/uL (0-0.4); EOSINOPHILS % (AUTO) 2 % (1-7); LYMPHOCYTES # (AUTO) 0.81 x10^3/uL (1-3.4); LYMPHOCYTES % (AUTO) 8 % (22-44); MD NO; MEAN CORPUSCULAR HEMOGLOBIN 29.6 pg (27.0-34.8); MEAN CORPUSCULAR HGB CONC 31.7 g/dL (32.4-35.8); MEAN CORPUSCULAR VOLUME 93.4 fL (80-100); MEAN PLATELET VOLUME 6.9 fL (7.4-10.4); MONOCYTES # (AUTO) 0.75 x10^3/uL (0.2-0.8); MONOCYTES % (AUTO) 8 % (2-9); NEUTROPHILS # (AUTO) 8.21 x10^3/uL (1.8-6.8); NEUTROPHILS % (AUTO) 83 % (42-75); PLATELET COUNT 648 x10^3/uL (130-400); RED BLOOD COUNT 3.83 x10^6/uL (3.82-5.3); RED CELL DISTRIBUTION WIDTH 17.5 % (9.6-15.2)
[2019-02-08 04:57] LABS: CALCIUM 7.2 mg/dL (8.5-10.1); CREATININE 0.79 mg/dL (0.55-1.02)
[2019-02-08 05:11] LABS: CHLORIDE 100 mmol/L (98-107)
[2019-02-08 05:17] LABS: ANION GAP 2 mmol/L (5-15)
[2019-02-08] MEDS: LEVOTHYROXINE 175 MCG TABLET PO SCH (05:27)
[2019-02-08 07:05] VITALS: BP 103/64
[2019-02-08] MEDS: AMIODARONE 200 MG TABLET PO SCH ×2 (08:40→20:11)
[2019-02-08] MEDS: AMLODIPINE 5 MG TABLET PO SCH ×2 (08:40→20:10)
[2019-02-08] MEDS: ASPIRIN 81 MG TABLET EC PO SCH (08:41)
[2019-02-08] MEDS: POTASSIUM CHLORIDE 20 MEQ TAB.ER.PRT PO SCH (08:41)
[2019-02-08] MEDS: MULTIVITAMIN 1 TABLET PO SCH (08:41)
[2019-02-08] MEDS: LISINOPRIL 10 MG TABLET PO SCH ×2 (08:41→20:09)
[2019-02-08] MEDS: FUROSEMIDE 40 MG/4 ML IV SCH (08:41)
[2019-02-08] MEDS: LIDODERM REMOVE PATCH NOTE XX SCH (09:30)
[2019-02-08] MEDS: ENOXAPARIN 40 MG/0.4 ML SQ SCH (10:09)
[2019-02-08 15:08] VITALS: BP 99/53
[2019-02-08 19:47] VITALS: BP 106/63
[2019-02-08] MEDS: LIDODERM 5% PATCH TD SCH (20:11)
[2019-02-08] MEDS ORDERED: FLU VACC QS2019-20 36MOS UP/PF 0.5 ML IM-VACC ONE ×2 (23:30→23:45)
[2019-02-09 02:16] VITALS: BP 109/74
[2019-02-09] MEDS: HYDROcodone/APAP 10/325 MG TABLET PO PRN ×2 (04:22→09:49)
[2019-02-09] MEDS: LEVOTHYROXINE 175 MCG TABLET PO SCH (05:41)
[2019-02-09 07:23] VITALS: BP 105/57
[2019-02-09 07:59] LABS: BASOPHILS # (AUTO) 0.05 x10^3/uL (0-0.1); BASOPHILS % (AUTO) 1 % (0-1); EOSINOPHILS # (AUTO) 0.22 x10^3/uL (0-0.4); EOSINOPHILS % (AUTO) 2 % (1-7); LYMPHOCYTES # (AUTO) 0.91 x10^3/uL (1-3.4); LYMPHOCYTES % (AUTO) 10 % (22-44); MD NO; MEAN CORPUSCULAR HEMOGLOBIN 28.9 pg (27.0-34.8); MEAN CORPUSCULAR HGB CONC 31.3 g/dL (32.4-35.8); MEAN CORPUSCULAR VOLUME 92.1 fL (80-100); MEAN PLATELET VOLUME 6.1 fL (7.4-10.4); MONOCYTES # (AUTO) 0.69 x10^3/uL (0.2-0.8); MONOCYTES % (AUTO) 7 % (2-9); NEUTROPHILS # (AUTO) 7.66 x10^3/uL (1.8-6.8); NEUTROPHILS % (AUTO) 80 % (42-75); PLATELET COUNT 665 x10^3/uL (130-400); RED BLOOD COUNT 3.91 x10^6/uL (3.82-5.3); RED CELL DISTRIBUTION WIDTH 17.2 % (9.6-15.2)
[2019-02-09 08:10] LABS: ANION GAP 2 mmol/L (5-15); CALCIUM 7.2 mg/dL (8.5-10.1); CHLORIDE 98 mmol/L (98-107); CREATININE 0.89 mg/dL (0.55-1.02)
[2019-02-09] MEDS: MULTIVITAMIN 1 TABLET PO SCH (08:57)
[2019-02-09] MEDS: FUROSEMIDE 40 MG/4 ML IV SCH (08:57)
[2019-02-09] MEDS: POTASSIUM CHLORIDE 20 MEQ TAB.ER.PRT PO SCH (08:58)
[2019-02-09] MEDS: AMLODIPINE 5 MG TABLET PO SCH (08:58)
[2019-02-09] MEDS: ASPIRIN 81 MG TABLET EC PO SCH (08:58)
[2019-02-09] MEDS: AMIODARONE 200 MG TABLET PO SCH (08:58)
[2019-02-09] MEDS: LISINOPRIL 10 MG TABLET PO SCH (08:58)
[2019-02-09] MEDS: LIDODERM REMOVE PATCH NOTE XX SCH (09:30)
[2019-02-09] MEDS ORDERED: POTA20TA14 PO (10:26)
[2019-02-09] MEDS ORDERED: FURO-93 PO (10:26)
[2019-02-09] MEDS: ENOXAPARIN 40 MG/0.4 ML SQ SCH (10:30)
== END 2019-02-09 12:00 | disposition home or self-care (01) | DRG 291 ==
LOC: ED 14:59 → 5SO 15:14 → DCLOUNGE 02-09 11:50
PROVIDERS: ADMIT Internal Medicine Infectious Disease; ATTEND Family Medicine
PROC: 0W993ZZ Drainage of Right Pleural Cavity, Percutaneous Approach (ICD-10-PCS; 2019-02-06)
PROC: 0W9B3ZZ Drainage of Left Pleural Cavity, Percutaneous Approach (ICD-10-PCS; principal; 2019-02-07)
DX: I11.0 Hypertensive heart disease with heart failure (principal); J96.01 Acute respiratory failure with hypoxia; G92 Toxic encephalopathy; J98.11 Atelectasis; I31.3 Pericardial effusion (noninflammatory); I50.33 Acute on chronic diastolic (congestive) heart failure; B18.2 Chronic viral hepatitis C; E89.0 Postprocedural hypothyroidism; F17.200 Nicotine dependence, unspecified, uncomplicated; G89.29 Other chronic pain; I25.10 Atherosclerotic heart disease of native coronary artery without angina pectoris; I35.0 Nonrheumatic aortic (valve) stenosis; I71.2 Thoracic aortic aneurysm, without rupture; M79.7 Fibromyalgia; Z80.9 Family history of malignant neoplasm, unspecified; Z90.710 Acquired absence of both cervix and uterus
CPT/HCPCS: 32555; 36415; 36600; 71045; 71275; 74022; 80048; 80053; 80061; 81003; 82803; 82945; 83615; 83880; 83986; 84145; 84157; 84484; 85025; 85610; 85651; 85730; 86140; 87070; 87205; 89051; 90686; 93005; 93306; G0378; J1650; J1940; Q9967; J7040

== ENCOUNTER → 2019-05-04 | Outpatient (CLI) | payer MEDICARE | END | disposition home or self-care (01) | LOC: CVU 12:41 | PROVIDERS: ATTEND Internal Medicine Cardiovascular Disease | DX: I83.92 Asymptomatic varicose veins of left lower extremity (principal); R60.9 Edema, unspecified; R06.9 Unspecified abnormalities of breathing | CPT/HCPCS: 93970 ==

== ENCOUNTER 2020-08-25 09:40 | Inpatient (IN) | payer MEDICARE ==
[~2020-08-25] VITALS: Ht 170.2 cm; Wt 50.3 kg
[~2020-08-25 09:40] MED LIST changes: -HYDR-3245 PO; +HYDR1TAB53 PO; +MULT-449 PO; -MULT1TAB60 PO
--- NOTE | 2020-08-25 10:42 | NUR ---
TO [facility] FROM LOBBY
--- NOTE | 2020-08-25 10:47 | NUR ---
DR ROBERTS BEDSIDE
--- NOTE | 2020-08-25 10:59 | NUR ---
SBAR REPORT GIVEN TO BECCA HARMAN. PT RECTAL TEMP WAS 99.4, MD UPDATED. KENDALLN, CALL LIGHT W/IN REACH.
--- NOTE | 2020-08-25 10:59 | NUR ---
BEDSIDE REPORT FROM AYLIN HARMAN.
[2020-08-25] MEDS ORDERED: MORPHINE SULFATE 4 MG/ML, 1ML IVPush PRN (11:00)
[2020-08-25 11:09] LABS: BASOPHILS % (AUTO) 1 % (0-1); EOSINOPHILS % (AUTO) 0 % (1-7); LYMPHOCYTES % (AUTO) 11 % (22-44); MEAN CORPUSCULAR HEMOGLOBIN 29.2 pg (27.0-34.8); MEAN PLATELET VOLUME 7.2 fL (7.4-10.4); MONOCYTES % (AUTO) 13 % (2-9); NEUTROPHILS % (AUTO) 76 % (42-75); PLATELET COUNT 486 x10^3/uL (130-400); RED BLOOD COUNT 4.71 x10^6/uL (3.82-5.3); RED CELL DISTRIBUTION WIDTH 14.9 % (9.6-15.2)
[2020-08-25 11:21] LABS: CHLORIDE 97 mmol/L (98-107)
[2020-08-25 11:26] LABS: ALANINE AMINOTRANSFERASE 12 U/L (12-78); ALKALINE PHOSPHATASE 59 U/L (45-117); ANION GAP 8 mmol/L (5-15); BILIRUBIN,TOTAL 0.4 mg/dL (0.2-1.0); CALCIUM 8.1 mg/dL (8.5-10.1); TOTAL PROTEIN 7.9 g/dL (6.4-8.2)
[2020-08-25 11:34] LABS: MD SCAN
[2020-08-25] MEDS ORDERED: OMNIPAQUE 350 MG/ML, 100ML BOTTLE ONE (11:45)
[2020-08-25 11:51] LABS: MICROSCOPIC AUTO
--- NOTE | 2020-08-25 12:39 | NUR ---
DR. ROBERTS AT BEDSIDE TO DISCUSS POC.
[2020-08-25] MEDS ORDERED: METRONIDAZOLE PMX 500MG/100ML 100 ML IV ONE (13:00)
[2020-08-25] MEDS ORDERED: CEFTRIAXONE 1,000 MG in DEXTROSE 5% 50 ML IVPB ONE (13:00)
[2020-08-25] MEDS ORDERED: METHYLNALTREXONE 12 MG/0.6 ML SYR SQ ONE (13:00)
--- NOTE | 2020-08-25 13:17 | NUR ---
CELESTINOAY PER DR. ROBERTS TO INITIATED ABX WITHOUT BLOOD CULTURES, PT DOES NOT MEET SEPSIS CRITERIA AT THIS TIME.
--- NOTE | 2020-08-25 13:24 | NUR ---
REPORT TO LEYLA HARMAN.
[2020-08-25] MEDS ORDERED: LORazepam 2 MG/ML, 1ML IVPush PRN (13:30)
[2020-08-25] MEDS ORDERED: TRAZODONE 50MG TABLET PO PRN (13:30)
[2020-08-25] MEDS ORDERED: ACETAMINOPHEN 325 MG TABLET PO PRN (13:30)
[2020-08-25] MEDS: HYDROcodone/APAP 10/325 MG TABLET PO SCH ×3 (13:30→21:23)
[2020-08-25 14:16] VITALS: BP 174/89
[2020-08-25] MEDS: METRONIDAZOLE PMX 500MG/100ML 100 ML IV SCH ×2 (14:21→21:44)
[2020-08-25] MEDS ORDERED: ONDANSETRON 2MG/ML, 2ML IVPush PRN (17:30)
[2020-08-25] MEDS ORDERED: ARTIFICIAL TEARS 15 DROP/ML BOTTLE RIGHTEYE PRN (18:00)
[2020-08-25] MEDS ORDERED: ARTIFICIAL TEARS 15 DROP/ML BOTTLE EACHEYE PRN (18:00)
[2020-08-25 19:13] VITALS: BP 164/71
[2020-08-25] MEDS ORDERED: AMLODIPINE 5 MG TABLET PO SCH (21:00)
[2020-08-25] MEDS ORDERED: LISINOPRIL 10 MG TABLET PO SCH (21:00)
[2020-08-25] MEDS ORDERED: AMIODARONE 200 MG TABLET PO SCH (21:00)
[2020-08-25] MEDS: POLYETHYLENE GLYCOL 17 GM PACKET PO SCH (21:23)
[2020-08-26 01:03] VITALS: BP 145/79
[2020-08-26] MEDS: HYDROcodone/APAP 10/325 MG TABLET PO SCH ×3 (01:28→09:26)
[2020-08-26] MEDS: METRONIDAZOLE PMX 500MG/100ML 100 ML IV SCH (05:39)
[2020-08-26] MEDS: LEVOTHYROXINE 175 MCG TABLET PO SCH ×2 (05:40→08:50)
[2020-08-26 06:04] LABS: ANION GAP 7 mmol/L (5-15); CALCIUM 8.2 mg/dL (8.5-10.1); CHLORIDE 100 mmol/L (98-107); CREATININE 0.65 mg/dL (0.55-1.02)
[2020-08-26 06:07] LABS: BASOPHILS % (AUTO) 1 % (0-1); EOSINOPHILS % (AUTO) 1 % (1-7); LYMPHOCYTES % (AUTO) 17 % (22-44); MEAN CORPUSCULAR HEMOGLOBIN 29.3 pg (27.0-34.8); MEAN CORPUSCULAR HGB CONC 34.1 g/dL (32.4-35.8); MEAN PLATELET VOLUME 7.6 fL (7.4-10.4); MONOCYTES % (AUTO) 13 % (2-9); NEUTROPHILS % (AUTO) 69 % (42-75); PLATELET COUNT 488 x10^3/uL (130-400); RED BLOOD COUNT 4.54 x10^6/uL (3.82-5.3); RED CELL DISTRIBUTION WIDTH 14.7 % (9.6-15.2)
[2020-08-26 06:10] LABS: MD NO
[2020-08-26 07:19] VITALS: BP 120/73
[2020-08-26] MEDS: POLYETHYLENE GLYCOL 17 GM PACKET PO SCH (08:50)
[2020-08-26] MEDS ORDERED: MULTIVITAMIN 1 TABLET PO SCH (09:00)
[2020-08-26] MEDS ORDERED: ESTROGEN CONJUGATED 0.3 MG TABLET PO SCH (09:00)
[2020-08-26] MEDS ORDERED: ASPIRIN 81 MG TABLET EC PO SCH (09:00)
[2020-08-26] MEDS ORDERED: DEXTROAMPHETAMINE HOMEMEDPO SCH (09:00)
[2020-08-26] MEDS ORDERED: AMPHETAMINE HOMEMEDPO SCH (09:00)
[2020-08-26] MEDS ORDERED: CEFD300C37 PO (11:57)
[2020-08-26] MEDS ORDERED: METR-90 PO (11:57)
[2020-08-26] MEDS ORDERED: POLY17PO5 PO (11:57)
[2020-08-26] MEDS ORDERED: CEFTRIAXONE 2 GM in DEXTROSE 5% 50 ML IVPB SCH (12:00)
== END 2020-08-26 14:30 | disposition home or self-care (01) | DRG 391 ==
LOC: ED 12:16 → EDIP 12:48 → SUATTDRO 13:09 → 3N 13:34 → DCLOUNGE 08-26 14:20
PROVIDERS: ADMIT Internal Medicine; ATTEND Internal Medicine
PROC: 0T9B70Z Drainage of Bladder with Drainage Device, Via Natural or Artificial Opening (ICD-10-PCS; principal; 2020-08-25)
DX: K52.9 Noninfective gastroenteritis and colitis, unspecified (principal); K65.9 Peritonitis, unspecified; K57.92 Diverticulitis of intestine, part unspecified, without perforation or abscess without bleeding; N39.0 Urinary tract infection, site not specified; F11.20 Opioid dependence, uncomplicated; E03.9 Hypothyroidism, unspecified; F15.90 Other stimulant use, unspecified, uncomplicated; G89.29 Other chronic pain; M54.9 Dorsalgia, unspecified; Z90.49 Acquired absence of other specified parts of digestive tract; Z95.2 Presence of prosthetic heart valve
CPT/HCPCS: 36415; 74177; 80048; 80053; 81001; 85025; 87070; 87077; 87086; 87186; 87205; 96365; G0378; J0696; J2405; Q9967